=== PATIENT | female | born 1985 | race Caucasian/White ===

== ENCOUNTER 2019-09-30 19:11 | Emergency (ER) | payer OTHER, SELFPAY ==
[2019-09-30 19:11] VITALS: BP 150/89; PULSE 71; RESP 16; TEMP 37.2; O2SAT 98; BMI 28.3
[2019-09-30] MEDS: HYDROcodone Bitartrate/Apap 5/325 Tablet PO (19:52)
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
--- NOTE | 2019-09-30 21:15 | RAD_ITS ---
STUDY: X-RAY - RIGHT HAND REASON FOR EXAM: Female, 33 years old. RIGHT HAND POST REDUCTION TECHNIQUE: 3 view(s) of the hand. COMPARISON: None. FINDINGS: Normal radiocarpal articulation. Normal distal radioulnar joint. Normal visualized carpal bones. Normal carpal articulations Normal carpometacarpal articulation of the thumb. Normal second through fifth carpometacarpal joints. Acute volarly angulated oblique fracture the neck of the fifth metacarpal bone consistent with a boxer''s fracture. Normal metacarpophalangeal joint of the thumb. Normal interphalangeal joint of the thumb. Normal proximal and distal phalanges of the thumb. Normal metacarpophalangeal joints of the second through fifth fingers. Normal proximal and distal interphalangeal joints of the second through fifth fingers. Normal phalanges of the second through fifth fingers. The soft tissue structures are unremarkable. RAD/Hand Min 3 Views IMPRESSION: Acute boxer''s fracture of the fifth metacarpal bone. Electronically Signed: Rajat Marti MD at 21:36 EST Tel , Service support ,
[2019-09-30 21:25] VITALS: BP 135/57; PULSE 73; RESP 20; O2SAT 100
[2019-09-30] MEDS: Bupivacaine Mpf 0.5% 30 ML VIAL INFILT (21:25)
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
[2019-09-30 22:05] VITALS: BP 120/69; PULSE 67; RESP 18; O2SAT 97
== END 2019-09-30 22:06 | disposition home or self-care (01) ==
LOC: ED 20:14
PROVIDERS: Emergency Provider Emergency Medicine; PCP Internal Medicine
DX: S62.326A Displaced fracture of shaft of fifth metacarpal bone, right hand, initial encounter for closed fracture (principal); W22.8XXA Striking against or struck by other objects, initial encounter; Y93.89 Activity, other specified; Y92.9 Unspecified place or not applicable; Y99.9 Unspecified external cause status; Z87.891 Personal history of nicotine dependence
CPT/HCPCS: 26605; 73130; 99283

== ENCOUNTER 2022-06-15 01:04 | Emergency (ER) | payer MEDICAID, SELFPAY ==
[2022-06-15 01:05] VITALS: BP 147/83; PULSE 92; RESP 16; TEMP 36.5; O2SAT 100; BMI 30.1
[2022-06-15 01:11] VITALS: BP 147/83; PULSE 92; RESP 16; TEMP 36.5; O2SAT 100
[2022-06-15] MEDS: morphine 10 MG/ML Syringe IM (01:48)
[2022-06-15] MEDS: Ondansetron ODT 4 MG Tablet PO (01:48)
[2022-06-15] MEDS: Lidocaine 2% /Epi 1:100 (20ml) 20 ML VIAL INFILT (01:48)
[2022-06-15 02:43] VITALS: BP 134/74; PULSE 85; RESP 18; TEMP 37.1; O2SAT 98
--- NOTE | 2022-06-15 03:10 | EDS_ITS ---
HPI History of Present Illness Chief Complaint: Dental Narrative Narrative: Patient is a 36-year-old female who reports she has been seen twice and placed on antibiotics secondary to dental pain and infection. She states has been taking antibiotics as directed but today has had increasing swelling to the right side of her face. She denies any trauma fevers chills difficulty breathing or swallowing but with the increased swelling presents for evaluation [facility] Medical History no medical history no medical history Home Medications clindamycin HCl 300 mg capsule 300 mg PO 4X/DAY 10 days #40 caps 06/15/22 [Rx Last Taken Unknown] oxycodone-acetaminophen 5 mg-325 mg tablet (Percocet) 1 tab PO Q6H PRN pain 3 days #12 tabs 06/15/22 [Rx Last Taken Unknown] Allergy/AdvReac Type Severity Reaction Status Date / Time No Known Allergies Allergy Verified 06/15/22 01:12 Social History Smoking Status: Former smoker ROS ROS ED Constitutional Constitutional ED: Denies chills or fever(s) ENT ENT ED: Reports other Details: Positive dental pain and facial swelling ; Denies sore throat Cardiovascular Cardiovascular: Denies chest pain Respiratory/Chest Respiratory/Chest: Denies cough or dyspnea Gastrointestinal Gastrointestinal: Denies abdominal pain, diarrhea, nausea or vomiting Genitourinary Genitourinary ED: Denies dysuria Musculoskeletal Musculoskeletal: Denies myalgias Integumentary Denies rash Neurologic Neurologic: Denies headache(s) Hematologic/Lymphatic Hematologic/Lymphatic: Denies easy bleeding or easy bruising EXAM Physical Exam Const Vital Signs: 06/15/22 01:05 06/15/22 01:11 06/15/22 02:43 Temperature 97.7 F L 97.7 F L 98.8 F Temperature Source Temporal Temporal Oral Pulse Rate 92 92 85 Respiratory Rate 16 16 18 Blood Pressure 147/83 H 147/83 H 134/74 H Blood Pressure Mean 104 104 94 Pulse Ox 100 100 98 Oxygen Delivery Method Room Air Room Air Room Air Positive well nourished and well developed General Appearance ED: well developed HEENT Reports moist mucous membranes HEENT Narrative: Patient has diffuse soft tissue swelling around the right zygomatic arch consistent with dental abscess. There is no tongue or lip swelling noted. No airway edema or compromise. Patient has dental caries present with soft tissue swelling and fluctuance indicating abscess in the right upper jaw. Eyes PERRL and EOMs intact bilaterally Neck supple Neck Narrative: Positive anterior cervical lymphadenopathy No brawny edema in the submental space to suggest Robin's angina Resp normal respiratory effort and clear to auscultation bilaterally Cardio regular rate and regular rhythm Extremity normal to inspection Neuro oriented x3 and CN's II-XII intact bilaterally Sensorium / Orientation: alert Psych mental status grossly normal Skin Skin Narrative: Soft tissue changes to the right cheek as documented above MDM MDM MDM Narrative Medical decision making narrative: Patient presented to the ER afebrile without signs of respiratory distress or changes concerning for Robin's angina. Therefore I felt no need for imaging or laboratory studies. The patient's history and exam is most consistent with a developing dental abscess. Therefore elected to perform incision and drainage as documented below. Following this patient will have antibiotic changed to clindamycin for broader spectrum of coverage but as she does not have respiratory distress or signs of septicemia she is discharged home and can follow-up with a dentist for further treatment Patient was given a right superior alveolar dental block using 1.5 mL of 2% lidocaine with epinephrine and 1.5 mL of 0.5% Marcaine. Following this a #11 blade was used to make a 1 cm incision into the gingiva where the area of fluctuance was noted. There is a small amount of purulent material expressed. Patient tolerated the procedure well without complication Discharge Plan Triage Chief Complaint: Dental ED Provider: Toni Rolle Dx/Rx/DC Orders Clinical Impression: Dental abscess Instructions: Dental Abscess Prescriptions: New oxycodone-acetaminophen [Percocet] 5-325 mg tablet 1 tab PO Q6H PRN (Reason: pain) 3 Days Qty: 12 0RF clindamycin HCl 300 mg capsule 300 mg PO 4X/DAY 10 Days Qty: 40 0RF Primary Care Provider: Valerie Myers Referrals: Valerie Myers MD [Primary Care Provider] - Activity Restrictions/Additional Instructions: Please follow-up with your dentist for further evaluation and treatment. Use the Percocet as prescribed for pain control and stop the penicillin you were previously given as it does not seem to be improving the infection and changed to clindamycin which was prescribed today. If you have any further concerns please return to the ER for repeat evaluation Disposition Disposition: Home, Self Care Discharge Date/Time: 06/15/22 03:31
== END 2022-06-15 03:31 | disposition home or self-care (01) ==
PROVIDERS: Emergency Provider Emergency Medicine; PCP Internal Medicine; Visit Provider Emergency Medicine
DX: K04.7 Periapical abscess without sinus (principal); Z87.891 Personal history of nicotine dependence
CPT/HCPCS: 41800; 64999; 96372; 99282